=== PATIENT | female | born 1945 | race Caucasian/White ===

== ENCOUNTER 2020-01-02 04:22 | Day surgery (SDC) | payer OTHER ==
[2019-12-30 15:38] VITALS: BMI 25.9
--- NOTE | 2020-01-02 12:16 | OP ---
Operative Note - Note: Operative Date: 01/02/20 Pre-Operative Diagnosis: Left knee medial meniscus tear Operation: Left knee arthroscopy with partial medial and lateral meniscectomy Post-Operative Diagnosis: Same as Pre-op Surgeon: Dontrell Pennington Multi Spindle Operator: Mary Medley Anesthesia: General Operative Report Dictated: Yes
[2020-01-02] MEDS ORDERED: EPINEPHrine/PF 1 MG/1 ML (1:1,000) AMPULE ONE (12:20)
[2020-01-02] MEDS ORDERED: MIDAZOLAM HCL 2 MG/2 ML SINGLE DOSE VIAL ONE (12:29)
[2020-01-02] MEDS ORDERED: BUPIVACAINE HCL/PF 0.25% (2.5MG/ML) 10 ML VIAL ONE (12:37)
[2020-01-02] MEDS ORDERED: BUPIVACAINE HCL/PF 0.5% (5 MG/ML) 30 ML VIAL IJ ONE (13:29)
[2020-01-02] MEDS ORDERED: KETOROLAC TROMETHAMINE 30 MG/1 ML VIAL ONE (13:40)
[2020-01-02] MEDS ORDERED: oxyCODONE HCL 5 MG TABLET PO PRN (14:05)
[2020-01-02] MEDS ORDERED: ONDANSETRON 4 MG/2 ML VIAL IVPUSH PRN (14:05)
[2020-01-02] MEDS ORDERED: KETOROLAC TROMETHAMINE 15 MG/ML VIAL IVPUSH ONE (14:06)
[2020-01-02] MEDS ORDERED: LACTATED RINGERS SOLUTION 1,000 ML IV SCH (14:15)
--- NOTE | 2020-01-02 14:28 | OP ---
DATE OF OPERATION: 01/02/2020 PREOPERATIVE DIAGNOSIS: Left knee medial meniscal tear. POSTOPERATIVE DIAGNOSIS: Left knee medial meniscal tear. PROCEDURE: Left knee arthroscopy with partial medial meniscectomy. SURGEON: Dontrell Pennington MD REGISTERED NURSE NURSERY: ITZ Reilly, whose skillful assistance was necessary for the safe and timely performance of this procedure. Ms. Medley was able to provide limb positioning, traction. POSTOPERATIVE CONDITION: Stable. COMPLICATIONS: None. INDICATIONS: This is a pleasant woman who has been suffering from medial knee pain which was refractory to conservative measures. Discussed the options of nonoperative versus operative care. Operative risks were reviewed in detail including bleeding, infection, neurovascular injury, need for further surgery, postoperative pain and stiffness, progression of osteoarthritis. We discussed that surgery would likely be a holdover until she required total knee replacement which may occur within a few years or sooner. I addressed all the patient's questions and concerns. She voiced understanding and is electing to proceed. DESCRIPTION OF PROCEDURE: Patient was brought to the operating room where general anesthetic was administered. Left lower extremity was then prepped and draped in the usual sterile fashion. A preoperative dose of antibiotics was given, and the usual timeout procedure was performed. The bony landmarks were now marked out on the knee. The lateral portal was established with an 11 blade. The arthroscope was passed into the patellofemoral joint. Here, moderate, partial-thickness chondral loss was noted on the patellar and trochlear surfaces. The arthroscope was passed into the notch. ACL and PCL were visualized and intact. The arthroscope was passed into the medial compartment. A medial portal was established under spinal needle localization. The medial meniscus seemed to be intact for the most part. However, on probing of the posterior horn, it was apparent that there was a complete-thickness radial tear present. The chondral surfaces demonstrated moderate, partial-thickness chondral loss along the femoral and tibial surfaces. The meniscal biters and a shaver were used to debride the meniscus down to a stable base. The lateral compartment was now inspected, demonstrating also [id number] partial chondral loss on the femoral side and mild chondral loss on the tibial side. The lateral meniscus was inspected and found to be stable and probed and found to be stable as well. At this point, the excess fluid was withdrawn from the knee. The portals were sutured using 3-0 nylon. Sterile dressings were placed. The patient was extubated and transferred to recovery room in stable condition. Shayla [id number]
[2020-01-02 14:44] VITALS: TEMP 97.6
[2020-01-02] MEDS ORDERED: oxyCODONE HCL 5 MG TABLET ONE (14:48)
[2020-01-02 15:33] VITALS: BP 140/70; PULSE 70
== END 2020-01-02 15:20 | disposition home or self-care (01) ==
LOC: JASU-SURG 04:22
PROVIDERS: ATTEND Orthopaedic Surgery Sports Medicine
PROC: 0SBD4ZZ Excision of Left Knee Joint, Percutaneous Endoscopic Approach (ICD-10-PCS; principal; 2020-01-02 13:10)
DX: S83.242A Other tear of medial meniscus, current injury, left knee, initial encounter (principal); X58.XXXA Exposure to other specified factors, initial encounter; Y93.9 Activity, unspecified; Y92.9 Unspecified place or not applicable
CPT/HCPCS: 94760

== ENCOUNTER 2020-04-22 08:33 | Inpatient (IN) | payer OTHER ==
[2020-04-16 10:36] VITALS: BMI 25.5
[2020-04-22] MEDS ORDERED: BUPIVACAINE HCL/PF 0.5% (5 MG/ML) 30 ML VIAL IJ ONE (10:11)
[2020-04-22] MEDS ORDERED: MIDAZOLAM HCL 2 MG/2 ML SINGLE DOSE VIAL ONE (10:11)
[2020-04-22] MEDS ORDERED: BUPIVACAINE HCL/PF 0.5% (5MG/ML) 10 ML VIAL ONE (11:32)
[2020-04-22] MEDS ORDERED: VANCOMYCIN 1,000 MG VIAL (RESTRICTED TO ID ONLY) ONE (11:33)
[2020-04-22] MEDS ORDERED: ONDANSETRON 4 MG/2 ML VIAL ONE (12:10)
[2020-04-22] MEDS ORDERED: TRANEXAMIC ACID 1000 MG/10 ML VIAL ONE ×2 (12:10→12:58)
[2020-04-22] MEDS ORDERED: ceFAZolin SODIUM 1 GM VIAL ONE (12:10)
[2020-04-22] MEDS ORDERED: VANCOMYCIN 1,000 MG VIAL (RESTRICTED TO ID ONLY) IVPB ONE (12:33)
[2020-04-22] MEDS ORDERED: BUPIVICAINE 0.25%/MORPH PF/KETOROLAC - 51ML DISP.SYRINGE IA ONE (12:50)
[2020-04-22] MEDS ORDERED: oxyCODONE HCL 5 MG TABLET PO PRN (13:27)
[2020-04-22] MEDS ORDERED: traMADol HCL 50 MG TABLET PO PRN (13:27)
[2020-04-22] MEDS ORDERED: ONDANSETRON 4 MG/2 ML VIAL IVPUSH PRN (13:27)
[2020-04-22] MEDS ORDERED: LACTATED RINGERS SOLUTION 1,000 ML IV SCH (13:30)
[2020-04-22] MEDS ORDERED: DOCUSATE SODIUM 100 MG CAPSULE (FP) PO PRN (13:43)
[2020-04-22] MEDS ORDERED: LACTATED RINGERS SOLUTION 1,000 ML/1,000 ML INFUS.BAG IV SCH (13:45)
[2020-04-22] MEDS ORDERED: ACETAMINOPHEN INJECTION 100 ML IVPB ONE (13:55)
[2020-04-22] MEDS ORDERED: ACETAMINOPHEN 1000 MG/100 ML VIAL (NON FORMULARY) IVPB ONE ×2 (13:55→14:00)
[2020-04-22] MEDS: ceFAZolin 2 GRAM PREMIX BAG IVPB SCH (17:50)
[2020-04-22] MEDS: oxyCODONE HCL 5 MG TABLET PO PRN ×2 (20:03→21:12)
[2020-04-22] MEDS: ACETAMINOPHEN 325 MG TABLET (FP) PO SCH (20:04)
[2020-04-22] MEDS: oxyCODONE HCL 10 MG SUSTAINED ACTING TABLET PO SCH (21:13)
[2020-04-22] MEDS: PANTOPRAZOLE 20 MG TABLET PO SCH (21:13)
[2020-04-23] MEDS: ceFAZolin 2 GRAM PREMIX BAG IVPB SCH (01:14)
[2020-04-23] MEDS ORDERED: LOCK ITEM NR ONE (01:27)
[2020-04-23] MEDS: ACETAMINOPHEN 325 MG TABLET (FP) PO SCH ×4 (03:00→20:05)
[2020-04-23] MEDS: oxyCODONE HCL 5 MG TABLET PO PRN ×2 (06:52→09:10)
[2020-04-23] MEDS ORDERED: ENOXAPARIN NA (PORCINE) 40 MG/0.4 ML DISP.SYRIN SQ SCH (08:00)
[2020-04-23 09:04] LABS: CALCIUM 8.2 mg/dl (8.5-10); CREATININE 0.6 mg/dl (0.55-1.3); MAGNESIUM 1.6 mg/dL (1.8-2.4); POTASSIUM 4.1 mmol/L (3.5-5.1)
[2020-04-23 09:06] LABS: HEMATOCRIT 30.5 % (32.4-45.2); MCH 30.5 pg (25.7-33.7); MCHC 32.9 g/dl (32.0-36.0); MEAN CELL VOLUME 92.8 fl (80-96); PLATELET COUNT 226 K/MM3 (134-434); RBC 3.28 M/mm3 (3.60-5.2); RDW 12.6 % (11.6-15.6)
[2020-04-23] MEDS ORDERED: MAGNESIUM SULF 50% (8.12 MEQ/2 ML-1 GM VIAL) IVPB ONE (10:07)
[2020-04-23] MEDS: oxyCODONE HCL 10 MG SUSTAINED ACTING TABLET PO SCH ×2 (10:19→21:29)
[2020-04-23] MEDS: PANTOPRAZOLE 20 MG TABLET PO SCH ×2 (10:19→21:29)
[2020-04-23] MEDS ORDERED: MAGNESIUM SULFATE IN WATER 2 GM/50 ML IVPB IVPB ONE (10:30)
[2020-04-24] MEDS: ACETAMINOPHEN 325 MG TABLET (FP) PO SCH ×2 (03:36→09:04)
[2020-04-24 06:07] VITALS: BP 108/52; PULSE 79; TEMP 99.2
[2020-04-24] MEDS: PANTOPRAZOLE 20 MG TABLET PO SCH (09:02)
[2020-04-24] MEDS: oxyCODONE HCL 10 MG SUSTAINED ACTING TABLET PO SCH (09:02)
== END 2020-04-24 11:59 | disposition home health service (06) | DRG 470 ==
LOC: FM/S 08:33
PROVIDERS: ADMIT Orthopaedic Surgery; ATTEND Orthopaedic Surgery
PROC: 8E0W0CZ Robotic Assisted Procedure of Trunk Region, Open Approach (ICD-10-PCS; 2020-04-22)
PROC: 0SRB0JZ Replacement of Left Hip Joint with Synthetic Substitute, Open Approach (ICD-10-PCS; principal; 2020-04-22 12:12)
DX: M16.12 Unilateral primary osteoarthritis, left hip (principal); K21.9 Gastro-esophageal reflux disease without esophagitis; E83.42 Hypomagnesemia
CPT/HCPCS: 36415; 73502-TC-LT-FY; 80048; 83735; 85027; 88304-TC; 88311-TC; 94760; 97116-GP; 97162-GP; J0131